=== PATIENT | male | born 1985 ===

== ENCOUNTER 2018-02-27 08:06 | Emergency (ER) | payer OTHER ==
--- NOTE | 2018-02-27 08:12 | ED PDOC ---
Arrival/HPI - General Time Seen by Provider: 02/27/18 08:12 Historian: Patient - History of Present Illness Narrative History of Present Illness (Text): 02/27/18 08:32 A 32 year old male smoker, whose past medical history includes seizure, presents to the emergency department complaining of RLQ abdominal pain for 4 days. Patient reports pain has progressively worsening. Describes pain as sharp and 9/10 severity. Notes also experiencing chills, vomiting (yesterday with associated pain), nausea, and appetite changes (eating very little). Patient denies any dysuria, hematuria, or any other complaints at this time. Also, patient mentions recently having seizures, which occur twice a month. No PMD Time/Duration: < week (4 days) Symptom Onset: Sudden, Gradual Symptom Course: Unchanged Past Medical History - Provider Review Nursing Documentation Reviewed: Yes Family/Social History - Physician Review Nursing Documentation Reviewed: Yes Family/Social History: No Known Family HX Allergies/Home Meds Allergies/Adverse Reactions: Allergies No Known Allergies Allergy (Verified 01/30/18 16:37) Home Medications: Home Meds Medication Instructions Recorded Confirmed levETIRAcetam [Keppra] 500 mg PO BID 02/27/18 02/27/18 Review of Systems - Physician Review All systems were reviewed & negative as marked: Yes - Review of Systems Constitutional: Night Sweats Gastrointestinal: Abdominal Pain (RLQ), Nausea, Vomiting (yesterday with associated pain), Appetite Changes (eating very little). absent: Stool Changes Genitourinary Male: absent: Dysuria, Hematuria Physical Exam Vital Signs Reviewed: Yes Vital Signs Temp Pulse Resp BP Pulse Ox 02/27/18 10:06 97.8 F 70 18 146/90 99 02/27/18 08:13 97.8 F 71 18 144/91 H 99 Temperature: Afebrile Blood Pressure: Normal Pulse: Regular Respiratory Rate: Normal Appearance: Positive for: Well-Appearing Pain Distress: None Mental Status: Positive for: Alert and Oriented X 3 - Systems Exam Head: Present: Atraumatic, Normocephalic Pupils: Present: PERRL Extroacular Muscles: Present: EOMI Conjunctiva: Present: Normal Mouth: Present: Moist Mucous Membranes Neck: Present: Normal Range of Motion Respiratory/Chest: Present: Clear to Auscultation, Good Air Exchange. No: Respiratory Distress, Accessory Muscle Use Cardiovascular: Present: Regular Rate and Rhythm, Normal S1, S2. No: Murmurs Abdomen: Present: Tenderness (RLQ tenderness), Guarding. No: Rebound Back: Present: Normal Inspection Upper Extremity: Present: Normal Inspection. No: Cyanosis, Edema Lower Extremity: Present: Normal Inspection. No: Edema Neurological: Present: GCS=15, CN II-XII Intact, Speech Normal Skin: Present: Warm, Dry, Normal Color. No: Rashes Psychiatric: Present: Alert, Oriented x 3, Normal Insight, Normal Concentration Medical Decision Making ED Course and Treatment: 02/27/18 08:36 Impression: 32 year old male with RLQ abdominal pain. Physical exam shows RLQ tenderness with guarding, no rebound. Differential Diagnosis included but are not limited to: Appendicitis vs. Colitis Plan: -- Abd/Pelvis CT -- Labs -- Urinalysis -- Blood Culture -- IV Fluids -- Reassess and disposition Progress Notes: 02/27/2018 10:45 Abd/Pelvis CT IMPRESSION: 1. No CT evidence of appendicitis. 2. Shotty mesenteric lymph nodes are seen medial to the cecum and ascending colon potentially reflective of limited mesenteric adenitis. 3. The remainder of the examination appears unremarkable. Dictator: Jose Antonio Dsouza MD 02/27/18 11:30 Patient no longer experiencing pain, and tolerating PO fluids. CT results explained to patient in detail. Advised to drink fluids and take Motrin for pain. Patient to follow-up with physician 1-2 days if symptoms worsens or with any concerns. - Lab Interpretations Microbiology Results: Microbiology Results 02/27/18 08:55 Blood Blood Culture - Preliminary NO GROWTH AFTER 24 HOURS 02/27/18 08:35 Blood Blood Culture - Preliminary NO GROWTH AFTER 24 HOURS Lab Results: 02/27/18 08:35 02/27/18 08:55 Lab Results 02/27/18 08:55: Sodium 143, Potassium 4.0, Chloride 106, Carbon Dioxide 27, Anion Gap 14, BUN 14, Creatinine 0.8, Est GFR ( Amer) > 60, Est GFR (Non- Af Amer) > 60, Random Glucose 86, Calcium 9.9, Total Bilirubin 0.4, AST 27, ALT 42, Alkaline Phosphatase 57, Total Protein 7.7, Albumin 4.3, Globulin 3.4, Albumin/Globulin Ratio 1.3, Lipase 56 02/27/18 08:35: Urine Color Yellow, Urine Appearance Clear, Urine pH 6.0, Ur Specific Stevenson >= 1.030, Urine Protein Negative, Urine Glucose (UA) Negative, Urine Ketones Trace H, Urine Blood Negative, Urine Nitrate Negative, Urine Bilirubin Negative, Urine Urobilinogen 0.2, Ur Leukocyte Esterase Negative 02/27/18 08:35: PT 11.3, INR 0.98, APTT 32.7 02/27/18 08:35: WBC 11.9 H, RBC 5.25, Hgb 15.1, Hct 44.6, MCV 85.0, MCH 28.8, MCHC 33.9, RDW 13.7, Plt Count 261, MPV 9.1, Gran % 63.2, Lymph % (Auto) 27.2, Iron % (Auto) 5.9, Eos % (Auto) 3.4, Baso % (Auto) 0.3, Gran # 7.55 H, Lymph # ( Auto) 3.2, Iron # (Auto) 0.7 H, Eos # (Auto) 0.4, Baso # (Auto) 0.03 I have reviewed the lab results: Yes - RAD Interpretation Radiology Orders: 02/27/18 08:36 ABD PELVIS PO & IV CONTRAST [CT] Stat - Medication Orders Current Medication Orders: Discontinued Medications Sodium Chloride (Sodium Chloride 0.9%) 1,000 mls @ 100 mls/hr IV .Q10H REINALDO Last Admin: 02/27/18 08:56 Dose: 100 mls/hr eMAR Start Stop Document 02/27/18 08:56 [facility] [place] [facility] [place]: 02/27/18 08:57 [facility] [id number] Intravenous Solution Start Date 02/27/18 Start Time 08:56 - Scribe Statement The provider has reviewed the documentation as recorded by the Adolfo Padilla Provider Scribe Attestation: All medical record entries made by the Scribe were at my direction and personally dictated by me. I have reviewed the chart and agree that the record accurately reflects my personal performance of the history, physical exam, medical decision making, and the department course for this patient. I have also personally directed, reviewed, and agree with the discharge instructions and disposition. Disposition/Present on Arrival - Present on Arrival Any Indicators Present on Arrival: No - Disposition Have Diagnosis and Disposition been Completed?: Yes Diagnosis: Mesenteric adenitis Disposition: HOME/ ROUTINE Disposition Time: 11:15 Patient Plan: Discharge Condition: IMPROVED Discharge Instructions (ExitCare): Mesenteric Lymphadenitis (DC) Additional Instructions: Mr Troy thank you for letting us take care of you today. Your provider was Dr. Becerra You were treated for Mesenteric Adenitis. The emergency medical care you received today was directed at your acute symptoms. If you were prescribed any medication, please fill it and take as directed. It may take several days for your symptoms to resolve. Return to the Emergency Department if your symptoms worsen, do not improve, or if you have any other problems. Please contact your doctor or call one of the physicians/clinics you have been referred to that are listed on the Patient Visit Information form that is included in your discharge packet. Bring any paperwork you were given at discharge with you along with any medications you are taking to your follow up visit. Our treatment cannot replace ongoing medical care by a primary care provider (PCP) outside of the emergency department. Thank you for allowing the [facility] team to be part of your care today. If you had an X-Ray or CT scan: A Radiologist will review the ED reading if any change in treatment is needed we will contact you. If you had a blood, urine, or wound culture: It will take several days for the results, if any change in treatment is needed we will contact you. If you had an STI test: It will take 48 hours for the results. Please call after 1 week if you have not heard back. Prescriptions: Ibuprofen [Motrin] 600 mg PO Q6 PRN #30 tab PRN Reason: Pain, Moderate (4-7) Referrals: [facility], [Non-Staff] - Follow up with primary Forms: [employer] (German), WORK NOTE
[2018-02-27 08:18] VITALS: RESP 18; TEMP 97.8; O2SAT 99
[2018-02-27] MEDS ORDERED: Iohexol 240 (50 ml) ONE (08:40)
[2018-02-27] MEDS ORDERED: Sodium Chloride 0.9% 1,000 ML IV SCH (08:45)
[2018-02-27 09:01] LABS: BASO # 0.03 K/mm3 (0.0-2.0); BASO % 0.3 % (0.0-3.0); EOS # 0.4 (0.0-0.7); EOS % 3.4 % (1.5-5.0); GRAN # 7.55 (1.4-6.5); GRAN % 63.2 % (50.0-68.0); HEMOGLOBIN 15.1 g/dL (14.0-18.0); LYMPH # 3.2 (1.2-3.4); LYMPH % 27.2 % (22.0-35.0); MEAN CORPUSCULAR HEMOGLOBIN 28.8 pg (25.0-35.0); MEAN CORPUSCULAR HGB CONC 33.9 g/dl (31.0-37.0); MEAN PLATELET VOLUME 9.1 fl (7.0-11.0); MONO # 0.7 (0.1-0.6); MONO % 5.9 % (1.0-6.0); RBC 5.25 10^6/uL (3.5-6.1); RED CELL DISTRIBUTION WIDTH 13.7 % (11.5-14.5); URINE BILIRUBIN NEGATIVE (NEGATIVE); URINE BLOOD NEGATIVE (NEGATIVE); URINE GLUCOSE (UA) NEGATIVE (NEGATIVE); URINE LEUKOCYTE ESTERASE NEGATIVE Leu/uL (NEGATIVE); URINE PROTEIN NEGATIVE mg/dL (<30 mg/dL); URINE UROBILINOGEN 0.2 E.U./dL (<1 E.U./dL); WHITE BLOOD COUNT 11.9 10^3/ul (4.5-11.0)
[2018-02-27 09:10] LABS: ALB/GLOB RATIO 1.3 (1.1-1.8); ALBUMIN 4.3 g/dL (3.0-4.8); ALT/SGPT 42 U/L (7-56); AST/SGOT 27 U/L (17-59); BLOOD UREA NITROGEN 14 mg/dL (7-21); CALCIUM 9.9 mg/dL (8.4-10.5); GFR AFRICAN-AMERICAN > 60; GFR NON-AFRICAN AMERICAN > 60; LIPASE 56 U/L (23-300)
[2018-02-27 09:10] LABS: INR 0.98 (0.93-1.08); PARTIAL THROMBOPLASTIN TIME 32.7 Seconds (25.1-36.5); PROTHROMBIN TIME 11.3 SECONDS (9.4-12.5)
[2018-02-27 09:11] LABS: URINE APPEARANCE CLEAR (CLEAR); URINE COLOR YELLOW (YELLOW)
[2018-02-27] MEDS ORDERED: Iohexol 350 MG/100 ML VIAL ONE (09:44)
--- NOTE | 2018-02-27 10:46 | CT ---
PROCEDURE: CT Abdomen and Pelvis with contrast HISTORY: rlq abd pain r/o appy COMPARISON: None. TECHNIQUE: Contrast dose: Omnipaque 350, 100 cc Radiation dose: Total exam DLP = 532.13 mGy-cm. This CT exam was performed using one or more of the following dose reduction techniques: Automated exposure control, adjustment of the mA and/or kV according to patient size, and/or use of iterative reconstruction technique. FINDINGS: LOWER THORAX: Unremarkable. LIVER: Unremarkable. No gross lesion or ductal dilatation. GALLBLADDER AND BILE DUCTS: Unremarkable. PANCREAS: Unremarkable. No gross lesion or ductal dilatation. SPLEEN: Unremarkable. ADRENALS: Unremarkable. No mass. KIDNEYS AND URETERS: Unremarkable. No hydronephrosis. No solid mass. VASCULATURE: Unremarkable. No aortic aneurysm. BOWEL: Shotty lymph nodes seen medial to the cecum and ascending colon. No obstruction. No gross mural thickening. No pericolic reaction throughout. APPENDIX: Normal appendix, filled but not significantly distended with gas and oral contrast material. PERITONEUM: Unremarkable. No free fluid. No free air. LYMPH NODES: Unremarkable. No enlarged lymph nodes. BLADDER: Unremarkable. REPRODUCTIVE: Unremarkable. BONES: No acute fracture. OTHER FINDINGS: None. IMPRESSION: 1. No CT evidence of appendicitis. 2. Shotty mesenteric lymph nodes are seen medial to the cecum and ascending colon potentially reflective of limited mesenteric adenitis. 3. The remainder of the examination appears unremarkable.
[2018-02-27 11:12] VITALS: BP 146/90; PULSE 70
== END 2018-02-27 11:23 | disposition home or self-care (01) ==
LOC: MERGE 08:06 → ED 08:06
DX: I88.0 Nonspecific mesenteric lymphadenitis (principal)
CPT/HCPCS: 74177; 80053; 81003; 83690; 85025; 85610; 85730; 87040; 99283; J7040; Q9966; Q9967